=== PATIENT | female | born 1955 | race Two or more races ===

== ENCOUNTER → 2024-08-08 | Outpatient (BNVA) | payer MEDICAID, SELFPAY | END | disposition home or self-care (01) | PROVIDERS: PCP Nurse Practitioner Family; Referring Provider Nurse Practitioner Family; Visit Provider Nurse Practitioner Primary Care | DX: E78.5 Hyperlipidemia, unspecified (principal); I10 Essential (primary) hypertension; E66.09 Other obesity due to excess calories; Z68.35 Body mass index [BMI] 35.0-35.9, adult; S22.43XA Multiple fractures of ribs, bilateral, initial encounter for closed fracture; S22.009A Unspecified fracture of unspecified thoracic vertebra, initial encounter for closed fracture; N39.0 Urinary tract infection, site not specified | CPT/HCPCS: 87811; 99213 ==

== ENCOUNTER → 2024-08-14 | Outpatient (BNVA) | payer OTHER, MEDICAID, SELFPAY | END | disposition home or self-care (01) | PROVIDERS: PCP Nurse Practitioner Primary Care; Referring Provider Nurse Practitioner Primary Care; Visit Provider Nurse Practitioner Primary Care | DX: N30.00 Acute cystitis without hematuria (principal) | CPT/HCPCS: 96372; 99215; A4216; J0696 ==

== ENCOUNTER → 2024-09-27 | Outpatient (BNVA) | payer OTHER, SELFPAY | END | disposition home or self-care (01) | PROVIDERS: PCP Nurse Practitioner Family; Referring Provider Nurse Practitioner Family; Visit Provider Nurse Practitioner Family | DX: Z71.2 Person consulting for explanation of examination or test findings (principal); M81.0 Age-related osteoporosis without current pathological fracture; K21.9 Gastro-esophageal reflux disease without esophagitis; K22.10 Ulcer of esophagus without bleeding; K29.70 Gastritis, unspecified, without bleeding; K29.80 Duodenitis without bleeding | CPT/HCPCS: 99214 ==

== ENCOUNTER → 2024-09-30 | Outpatient (CLI) | payer OTHER, SELFPAY ==
--- NOTE | 2024-09-30 11:45 | XR_ITS ---
Examination: Screening digital mammography, bilateral Computer aided detection 3-D breast Tomosynthesis, bilateral Date and time of exam: September 30, 2024 11:51 AM Compared to mammograms dating to April 29, 2016 Indication: Screening Technique: Nonmagnified MLO, CC views of the breasts to been obtained, reconstructed from 3-D Tomosynthesis images. R2 computer aided detection program utilized for evaluation of suspicious masses and/or abnormal calcifications. 3-D Tomosynthesis images obtained. Findings: The breasts are heterogeneously dense, which may obscure small masses Benign calcifications. No interval suspicious masses Impression: BI-RADS category II: Benign Findings. Recommend 1 year follow-up mammogram.
== END | disposition home or self-care (01) ==
LOC: CDIM 11:37
PROVIDERS: Referring Provider Nurse Practitioner Family; Visit Provider Nurse Practitioner Family
DX: Z12.31 Encounter for screening mammogram for malignant neoplasm of breast (principal); R92.323 Mammographic fibroglandular density, bilateral breasts; R92.1 Mammographic calcification found on diagnostic imaging of breast
CPT/HCPCS: 77063; 77067

== ENCOUNTER → 2024-11-01 | Outpatient (BNVA) | payer OTHER, MEDICAID, SELFPAY | END | disposition home or self-care (01) | PROVIDERS: PCP Nurse Practitioner Family; Referring Provider Nurse Practitioner Family; Visit Provider Nurse Practitioner Family | DX: M54.50 Low back pain, unspecified (principal); Z71.2 Person consulting for explanation of examination or test findings | CPT/HCPCS: 99214 ==

== ENCOUNTER → 2024-11-01 | Outpatient (CLI) | payer OTHER, MEDICAID, SELFPAY ==
--- NOTE | 2024-11-01 11:37 | XR_ITS ---
Examination: Lumbar spine, 5 views Technique: Lumbar spine AP, lateral, coned lateral lower lumbar spine, bilateral obliques 5 views Exam date and time: November 01, 2024 1140 hours INDICATIONS: Low back pain beginning 2 months ago. FINDINGS: Severe osteopenia Lumbar dextroscoliosis 10 degrees Mild to moderate bilateral hip osteoarthritis Diffuse advanced facet arthropathy Severe chronic compression fracture L1 No acute lumbar fracture Diffuse lumbar disc narrowing, moderate to advanced L5-S1 IMPRESSION: Severe osteopenia Diffuse lumbar degenerative disc disease, moderate to advanced L5-S1 with significant spinal stenosis
== END | disposition home or self-care (01) ==
PROVIDERS: PCP Nurse Practitioner Family; Referring Provider Nurse Practitioner Family; Visit Provider Nurse Practitioner Family
DX: M85.88 Other specified disorders of bone density and structure, other site (principal); M51.369 Other intervertebral disc degeneration, lumbar region without mention of lumbar back pain or lower extremity pain; M48.061 Spinal stenosis, lumbar region without neurogenic claudication
CPT/HCPCS: 72110

== ENCOUNTER → 2024-11-19 | Outpatient (BNVA) | payer OTHER, MEDICAID, SELFPAY | END | disposition home or self-care (01) | PROVIDERS: PCP Nurse Practitioner Family; Referring Provider Nurse Practitioner Family; Visit Provider Nurse Practitioner Family | DX: M54.50 Low back pain, unspecified (principal); E78.5 Hyperlipidemia, unspecified; R73.03 Prediabetes; Z71.2 Person consulting for explanation of examination or test findings; M85.88 Other specified disorders of bone density and structure, other site; M48.061 Spinal stenosis, lumbar region without neurogenic claudication; M51.369 Other intervertebral disc degeneration, lumbar region without mention of lumbar back pain or lower extremity pain; E03.8 Other specified hypothyroidism; J30.9 Allergic rhinitis, unspecified | CPT/HCPCS: 87804; 87811; 99214 ==

== ENCOUNTER → 2025-02-06 | Outpatient (BNVA) | payer OTHER, MEDICAID, SELFPAY | END | disposition home or self-care (01) | PROVIDERS: PCP Nurse Practitioner Family; Referring Provider Nurse Practitioner Family; Visit Provider Nurse Practitioner Family | DX: M81.0 Age-related osteoporosis without current pathological fracture (principal); K14.6 Glossodynia; R19.6 Halitosis; M85.80 Other specified disorders of bone density and structure, unspecified site | CPT/HCPCS: 99213 ==

== ENCOUNTER → 2025-02-18 | Outpatient (BNVA) | payer OTHER, MEDICAID, SELFPAY | END | disposition home or self-care (01) | PROVIDERS: PCP Nurse Practitioner Family; Referring Provider Nurse Practitioner Family; Visit Provider Nurse Practitioner Family | DX: F41.9 Anxiety disorder, unspecified (principal); R73.03 Prediabetes; E55.9 Vitamin D deficiency, unspecified; E78.5 Hyperlipidemia, unspecified; I10 Essential (primary) hypertension; E66.09 Other obesity due to excess calories; Z68.35 Body mass index [BMI] 35.0-35.9, adult; E03.8 Other specified hypothyroidism; Z01.83 Encounter for blood typing; F32.0 Major depressive disorder, single episode, mild | CPT/HCPCS: 99214 ==

== ENCOUNTER → 2025-02-20 | Outpatient (BNVA) | payer OTHER, MEDICAID, SELFPAY | END | disposition home or self-care (01) | PROVIDERS: PCP Nurse Practitioner Family; Referring Provider Nurse Practitioner Family; Visit Provider Nurse Practitioner Family | DX: Z71.2 Person consulting for explanation of examination or test findings (principal); R73.03 Prediabetes; E78.5 Hyperlipidemia, unspecified | CPT/HCPCS: 99213 ==

== ENCOUNTER 2025-02-22 08:39 | Emergency (ER) | payer OTHER, MEDICAID, SELFPAY ==
[2025-02-22 08:48] VITALS: BP 188/105; BP 192/97; PULSE 76; RESP 18; TEMP 37.1; O2SAT 97; BMI 32.4
--- NOTE | 2025-02-22 08:59 | XR_ITS ---
Examination: PA lateral chest 2 views Technique: Upright chest 2 views Exam date and time: February 23, 2020 hours Indications: Headaches 5 at 1014 2 days ago. Findings: Mild prominence of ventricle Subsegmental atelectasis right base Infiltrate in the chest with kyphosis dorsal spine secondary to chronic osteoporotic compressions mid dorsal vertebral bodies. No pneumonia or pulmonary edema Impression: No pneumonia or pulmonary edema
--- NOTE | 2025-02-22 08:59 | EKG_ITS ---
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
--- NOTE | 2025-02-22 09:00 | PD.EDRME ---
Rapid Medical Screening Exam RME Arrival date/time: 02/22/25 08:39 69-year-old female presents the emergency department today with son who reports has been suffering with high blood pressure as well as headaches and nausea Chief Complaint: Headache Time Seen by Provider: 02/22/25 08:50 Vital signs: Vital Signs Temperature 98.8 F 02/22/25 08:48 Pulse Rate 76 02/22/25 08:48 Respiratory Rate 18 02/22/25 08:48 Blood Pressure 188/105 H 02/22/25 08:48 Pulse Oximetry (%) 97 02/22/25 08:48 Oxygen Delivery Method Room Air 02/22/25 08:48
[2025-02-22] MEDS: HYDROcodone/APAP 5/325 TABLET 1 TAB PO (10:17)
[2025-02-22] MEDS: ONDANSETRON ODT 4 MG TABRAP PO (10:18)
[2025-02-22 11:23] VITALS: BP 178/80; PULSE 94; RESP 18; TEMP 36.6; O2SAT 99
[2025-02-22] MEDS: METOCLOPRAMIDE INJ 5 MG/ML VIAL 2 ML 10 MG IM (12:59)
[2025-02-22] MEDS: KETOROLAC INJ 30 MG/ML VIAL IM (12:59)
[2025-02-22 13:03] VITALS: PULSE 68; RESP 16; TEMP 36.8; O2SAT 98
--- NOTE | 2025-02-22 13:06 | EDNOTE_ITS ---
ED Headache RME/HPI General Chief Complaint: Headache Stated Complaint: DUNN x 2 DAYS, HIGH B/P YESTERDAY AT MD OFFICE Time Seen by Provider: 02/22/25 08:50 Arrival date/time: 02/22/25 08:39 RME / HPI RME / HPI Narrative: 02/22/25 08:39 69-year-old female presents the emergency department today with son who reports has been suffering with high blood pressure as well as headaches and nausea DR. CORBIN MAIN ED EVALUATION: 69 year old female with history of hypertension presents to the ED for complaint of headache beginning this morning. Described as aching in sensation, located diffusely, initially rating 10/10. States she took her medications for hypertension this morning otherwise did not take any medications for pain. No other associated symptoms or complaints reported. Denies fevers, chills, sweats, vision changes, weakness, loss of sensation/movement. Related Data Previous Rx's ?Medication ?Instructions ?Recorded diclofenac sodium 1 % topical gel 2 g topical QID #100 grams 11/01/24 (Voltaren Arthritis Pain) denosumab 60 mg/mL subcutaneous 60 mg subcut .once tiffanie ry 6 months 02/06/25 syringe (Prolia) #1 mL aspirin 81 mg tablet,delayed 81 mg PO QDAY #90 tabs release losartan 100 1 tab PO QDAY 90 days #90 ta bs 02/18/25 mg-hydrochlorothiazide 25 mg tablet rosuvastatin 40 mg tablet 40 mg PO QDAY #90 tabs 02/18 ezetimibe 10 mg tablet 10 mg PO QDAY 90 days #90 ta bs 02/20/25 Allergies Allergy/AdvReac Type Severity Reaction Status Date / Time adhesive tape Allergy Mild Rash Verified 02/22/25 08:42 Review of Systems Review of Systems Narrative Review of Systems: Gen: No fever, no chills, no weight loss EYES: No discharge, no visual changes, no pain HEENT: No ear pain, no congestion, no sore throat PULM: no shortness of breath, no cough, no congestion CV: No chest pain, no dyspnea on exertion, no palpitations, no chest tightness GI: No nausea, no vomiting, no diarrhea, no pain, no constipation : No frequency, no urgency,? no dysuria Musc/skel: No joint pain, no back pain Skin: No rash, no ecchymosis, no lesions Neuro: No weakness, +headache Past Medical History Past Medical History CARDIAC: Positive Cardiac Disorders, Hypercholesterolemia and Hypertension GASTROINTESTINAL: Positive Gastrointestinal Disorders, Gall Bladder Disease and Gastroesophageal Reflux Disease REPRODUCTIVE: Positive Previous Pregnancies HEMATOLOGIC: Positive Blood Disorders and Anemia OTHER HISTORY: Positive Blood Transfusions Family History FAMILY HISTORY: Negative Family Cardiac Disorders Surgical History SURGICAL: Positive Eye Surgery (BILATERAL), Lumpectomy (BREAST) and Section (X1) Social History SMOKING STATUS: Never smoker SECOND HAND EXPOSURE: No ED Exam Narrative Physical exam: GENERAL APPEARANCE: AxOx4, no obvious distress, nontoxic appearing HEENT: NC, AT. MMM. EOMI, clear conjunctiva, oropharynx clear. NECK: Supple without lymphadenopathy. No stiffness or restricted ROM. HEART: Normal rate and regular rhythm, normal S1/S1, no m/r/g LUNGS: CTAB, moving air well. No crackles or wheezes are heard. BACK: No midline C/T/L spine pain or deformity, No CVAT, no obvious deformity. EXTREMITIES: Without cyanosis, clubbing or edema. MUSCULOSKELETAL: FROM of all major joints, no chest tenderness NEUROLOGICAL: Grossly nonfocal. Alert and oriented, moving all 4 extremities. CN not formally tested but appear grossly intact. Observed to ambulate with normal gait. Skin: Warm and dry without any rash. Course Quality Measures none Orders Category Date Time Status EKG (ED ONLY) *Do not use* NOW Care 02/22/25 08:59 Completed EKG (ED Only) Stat Exams 02/22/25 08:59 Draft XR chest 2V Stat Exams 02/22/25 08:59 Completed HYDROcodone*/APAP 5/325 [Garrison 5/325] Med 02/22/25 08:59 Discontinued 1 tab PO X1 ONE Ketorolac Inj [Toradol Inj] Med 02/22/25 12:38 Discontinued 30 mg IM X1 ONE Metoclopramide Inj [Reglan Inj] Med 02/22/25 12:38 Discontinued 10 mg IM X1 ONE Ondansetron Odt [Zofran Odt] Med 02/22/25 08:59 Discontinued 4 mg PO X1 ONE Reevaluation(s) Reevaluation #1: Patient reports her headache has improved, from 10/10 to 5/10. Will order migraine cocktail and DC home. We reviewed all the results, analysis, and treatment plans. Patient is amenable to discharge. Strict return precautions were outlined. Patient was discharged in stable condition. Time: 12:35 Vital Signs Vital signs: Vital Signs Temperature 98.8 F 02/22/25 08:48 Pulse Rate 76 02/22/25 08:48 Respiratory Rate 18 02/22/25 08:48 Blood Pressure 188/105 H 02/22/25 08:48 Pulse Oximetry (%) 97 02/22/25 08:48 Oxygen Delivery Method Room Air 02/22/25 08:48 Pulse ox is 97% on room air which is adequate. Headache MDM Narrative MDM Narrative:: Merline Sheikh am scribing for and in the presence of Dr. Corbin. Patient data [facility] records reviewed:: [facility] records (I reviewed ED visit on 09/06/2021 ) Clinical information provided by:: patient Social determinants that could affect healthcare access:: none Patient has the following chronic illnesses:: Hypertension How is presenting disease/condition affected by chronic disease/condition?: exacerbated by Evaluation data The following diagnostics were reviewed and interpreted by me:: lab results, radiology exam(s) and EKG tracing(s) (EKG at 09:05 AM shows sinus rhythm, rate 70, no acute ischemia, no STEMI. ) Lab and/or radiology exams considered but not ordered:: None Interpretation Summary: Ordering Physician: Meaghan (CLIF)Paolo NP Date of Service: 02/22/25 Procedure(s): XR chest 2V Accession Number(s): [id number] cc: Meaghan (CLIF)Paolo NP; Andrew Conrad MD; Zoraida Weaver ([facility])~ Examination: PA lateral chest 2 views Technique: Upright chest 2 views Exam date and time: February 23, 2020 hours Indications: Headaches 5 at 1014 2 days ago. Findings: Mild prominence of ventricle Subsegmental atelectasis right base Infiltrate in the chest with kyphosis dorsal spine secondary to chronic osteoporotic compressions mid dorsal vertebral bodies. No pneumonia or pulmonary edema Impression: No pneumonia or pulmonary edema Dictated By: Andrew Conrad MD Signed By: <Electronically signed by Andrew Conrad MD in OV> 02/22/25 0955 Medications / Prescriptions Medications or Prescriptions considered but not ordered:: None Medication administrations:: Medication Administration History Discontinued Medications Hydrocodone Bitart/Acetaminophen (Hydrocodone/Apap 5/325 Tablet) 1 tab PO X1 ONE Stop: 02/22/25 09:00 Last Admin: 02/22/25 10:17 Dose: 1 tab Documented By: JEFF Ketorolac Tromethamine (Ketorolac Inj 30 Mg/Ml Vial) 30 mg IM X1 ONE Stop: 02/22/25 12:39 Last Admin: 02/22/25 12:59 Dose: 30 mg Documented By: SILVA Metoclopramide HCl (Metoclopramide Inj 5 Mg/Ml Vial 2 Ml) 10 mg IM X1 ONE; P rotocol Stop: 02/22/25 12:39 Last Admin: 02/22/25 12:59 Dose: 10 mg Documented By: SILVA Ondansetron HCl (Ondansetron Odt 4 Mg Tabrap) 4 mg PO X1 ONE; Protocol Stop: 02/22/25 09:00 Last Admin: 02/22/25 10:18 Dose: 4 mg Documented By: JEFF See above Consultations Consultation(s) initiated? (list below): No Diagnosis Differential diagnosis headache: migraine, tension headache, headache and sinusitis Most likely diagnosis given after review of the tests above:: Headache Admission Indicated Admission indicated?: not indicated Admission Request Was there a request for admission?: No Disposition Plan Disposition Plan: Discharge Discharge Attestation Discharge Attestation: The patient and all family members were given an opportunity to ask questions and understood the discharge instructions. Discharge instructions specifically effects, indications for sooner follow up or return to the emergency department, and the expected course of current diagnosis. Patient condition: Stable Discharge Plan Plan Patient Disposition: HOME (Self Care) Prescriptions/Referrals Prescriptions/Med Rec: No Action Prolia 60 mg/mL syringe 60 mg subcut .once every 6 months Qty: 1 0RF aspirin 81 mg tablet,delayed release (DR/EC) 81 mg PO QDAY Qty: 90 1RF rosuvastatin 40 mg tablet 40 mg PO QDAY Qty: 90 1RF losartan-hydrochlorothiazide 100-25 mg tablet 1 tab PO QDAY 90 Days Qty: 90 2RF ezetimibe 10 mg tablet 10 mg PO QDAY 90 Days Qty: 90 0RF diclofenac sodium [Voltaren Arthritis Pain] 1 % gel 2 g topical QID Qty: 100 0RF Rx Instructions: apply to area of concern Referrals: Owen [facility] AFFAIRS MANAGER,Zoraida Enrique, [employer] AFFAIRS MANAGER [Primary Care Provider] - In 1 week Problem List Clinical Impression: Headache Patient/Caregiver Discharge Instructions Education Materials: Self-Care for Headaches Additional Instructions: Acuda a mccabe m?dico de cabecera en 2 o 3 d?as para rolf nueva evaluaci?n. Puede regresar a urgencias antes si los s?ntomas empeoran o si surge alg?n problema nuevo o preocupante. Print Language: Occitan Stand Alone Forms: Ivanna Award Info., Patient Portal Info Letter
== END 2025-02-22 13:04 | disposition home or self-care (01) ==
PROVIDERS: Emergency Provider Emergency Medicine; PCP Nurse Practitioner Family
DX: R51.9 Headache, unspecified (principal); R94.31 Abnormal electrocardiogram [ECG] [EKG]
CPT/HCPCS: 71046; 80053; 84484; 85025; 93005; 96372; 99284; J1885; J2765; Q0162; A9270

== ENCOUNTER → 2025-02-26 | Outpatient (BNVA) | payer OTHER, MEDICAID, SELFPAY | END | disposition home or self-care (01) | PROVIDERS: PCP Nurse Practitioner Family; Referring Provider Nurse Practitioner Family; Visit Provider Nurse Practitioner Family | DX: R51.9 Headache, unspecified (principal); Z23 Encounter for immunization; I10 Essential (primary) hypertension | CPT/HCPCS: 90471; 90677; 99215; G0009; J90677 ==

== ENCOUNTER → 2025-03-13 | Outpatient (BNVA) | payer OTHER, MEDICAID, SELFPAY | END | disposition home or self-care (01) | PROVIDERS: PCP Nurse Practitioner Family; Referring Provider Nurse Practitioner Family; Visit Provider Nurse Practitioner Family | DX: M81.0 Age-related osteoporosis without current pathological fracture (principal) | CPT/HCPCS: 96372; 99213; J0897 ==

== ENCOUNTER → 2025-03-24 | Outpatient (BNVA) | payer OTHER, MEDICAID, SELFPAY | END | disposition home or self-care (01) | PROVIDERS: PCP Nurse Practitioner Family; Referring Provider Nurse Practitioner Family; Visit Provider Nurse Practitioner Family | DX: R01.1 Cardiac murmur, unspecified (principal); R53.83 Other fatigue; E78.5 Hyperlipidemia, unspecified; R73.03 Prediabetes; E03.8 Other specified hypothyroidism; I10 Essential (primary) hypertension; R06.00 Dyspnea, unspecified | CPT/HCPCS: 85018; 99214 ==

== ENCOUNTER → 2025-04-01 | Outpatient (BNVA) | payer OTHER, MEDICAID, SELFPAY | END | disposition home or self-care (01) | PROVIDERS: PCP Nurse Practitioner Family; Referring Provider Nurse Practitioner Family; Visit Provider Nurse Practitioner Family | DX: I10 Essential (primary) hypertension (principal); E11.9 Type 2 diabetes mellitus without complications; E78.5 Hyperlipidemia, unspecified; Z71.2 Person consulting for explanation of examination or test findings | CPT/HCPCS: 83036; 99213 ==

== ENCOUNTER 2025-04-21 22:39 | Emergency (ER) | payer OTHER, MEDICAID, SELFPAY ==
[2025-04-21 22:39] VITALS: BP 163/82; PULSE 93; RESP 18; TEMP 36.7; O2SAT 97
--- NOTE | 2025-04-21 23:13 | PD.EDRME ---
Rapid Medical Screening Exam RME Arrival date/time: 04/21/25 22:39 Chief Complaint: Nausea/Vomiting/Diarrhea Vital signs: Vital Signs Temperature 98.1 F 04/21/25 22:39 Pulse Rate 93 04/21/25 22:39 Respiratory Rate 18 04/21/25 22:39 Blood Pressure 163/82 H 04/21/25 22:39 Pulse Oximetry (%) 97 04/21/25 22:39 Oxygen Delivery Method Room Air 04/21/25 22:39 Pulse ox room air is 97%. Vital signs reviewed by provider: Yes RME Narrative: 69-year-old female presents to the ED with a complaint of nausea with vomiting up to 3 times per day x 1 day with diarrhea up to 3 times a day x 1 day. Also complains of feeling very cold. Complains of pain at the epigastrium as well as the back of the head.
[2025-04-21] MEDS: ONDANSETRON ODT 4 MG TABRAP PO (23:44)
[2025-04-21 23:47] LABS: Basophils % (Auto) 0 % (0-2.5); Eosinophils # (Auto) 0.1 Thou/mm3 (0.0-0.5); Eosinophils % (Auto) 1 % (0-10); Hematocrit 38.6 % (36.0-46.0); Hemoglobin 13.2 g/dL (12.0-16.0); Immature Granulocytes % (Auto) 0 % (0-0); Immature Granulocytes Auto 0.04 Thou/mm3 (0.00-0.00); Lymphocytes % (Auto) 10 % (10-50); Mean Corpuscular HGB Conc 34.2 g/dl (31.0-37.0); Mean Corpuscular Hemoglobin 30.1 pg (25.0-35.0); Mean Corpuscular Volume 88 fL (80-100); Monocytes # (Auto) 0.5 Thou/mm3 (0.0-0.8); Monocytes % (Auto) 5 % (0-12); Neutrophils # (Auto) 8.7 Thou/mm3 (1.8-7.7); Neutrophils % (Auto) 84 % (37-80); Nucleated Red Blood Cell % 0 /100 WBC (0); Platelet Count 313 Thou/mm3 (140-440); RDW Standard Deviation 47.7 fL (36.4-46.3); Red Blood Count 4.38 Miln/mm3 (4.00-5.20); White Blood Count 10.3 Thou/mm3 (3.6-11.0)
[2025-04-21 23:56] LABS: Alanine Aminotransferase 25 U/L (10-49); Albumin, Serum 4.3 gm/dL (3.4-4.8); Albumin/Globulin Ratio 1.9 (1.2-2.2); Alkaline Phosphatase 94 U/L (46-116); Anion Gap 12 (7-16); Aspartate Amino Transferase 19 U/L (0-34); BUN/Creatinine Ratio 13 Ratio (12-20); Bilirubin,Total 1.2 mg/dL (0.3-1.2); Blood Urea Nitrogen 9 mg/dL (9-23); Calcium 8.2 mg/dL (8.3-10.6); Calcium (Corrected) 8.2 mg/dL (8.5-10.1); Chloride 101 mMol/L (98-107); Creatinine (Component) 0.7 mg/dL (0.6-1.3); Globulin 2.3 gm/dL (2.3-3.5); Glucose 128 mg/dL (74-106); Lipase 31 U/L (12-53); Osmolality,Calculated 280 (275-295); Potassium 3.1 mMol/L (3.4-5.1); Sodium 140 mMol/L (136-145); Total Protein 6.6 gm/dL (5.7-8.2); eGFR > 60 See Note
--- NOTE | 2025-04-22 01:53 | PD.EDNV ---
Nausea/Vomit./Diarrhea-RME/HPI General Chief complaint: Nausea/Vomiting/Diarrhea Stated complaint: VOMITING, DIARRHEA X THIS AM Arrival date/time: 04/21/25 22:39 RME / HPI RME / HPI Narrative: 69-year-old female presents to the ED with a complaint of nausea with vomiting up to 3 times per day x 1 day with diarrhea up to 3 times a day x 1 day. Also complains of feeling very cold. Complains of pain at the epigastrium as well as the back of the head. -------- Dr. Lezama?s Main ED Evaluation: 69yo female with a history of HTN, HLD presents to the ED for complaints of N/V/D x 1 day. Patient endorses having 3 emetic and diarrhea episodes over the last 24 hours. Patient was given Zofran here, but states it didn't improve her symptoms. Patient denies any headache, dizziness, chest pain, shortness of breath, abdominal pain, cough or any other associated symptoms. Denies any sick contacts or recent travel. Related Data Previous Rx's ?Medication ?Instructions ?Recorded diclofenac sodium 1 % topical gel 2 g topical QID #100 grams 11/01/24 (Voltaren Arthritis Pain) denosumab 60 mg/mL subcutaneous 60 mg subcut .once every 6 months 02/06/25 syringe (Prolia) #1 mL aspirin 81 mg tablet,delayed 81 mg PO QDAY #90 tabs 02/18/25 release calcium 1,000 mg (as 1 tab PO .q day 90 days #90 tabs 03/14/25 carbonate)-vitamin D3 20 mcg (800 unit) tablet amlodipine 5 mg tablet 5 mg PO QDAY #90 tabs 04/01/25 ezetimibe 10 mg tablet 10 mg PO QDAY 90 days #90 tabs 04/01/25 losartan 100 1 tab PO QDAY 90 days #90 tabs 04/01/25 mg-hydrochlorothiazide 25 mg tablet rosuvastatin 40 mg tablet 40 mg PO QDAY #90 tabs 04/01/25 ondansetron 4 mg disintegrating 4 mg PO Q12H PRN nausea and 04/22/25 tablet vomiting 2 days #4 tabs Allergies Allergy/AdvReac Type Severity Reaction Status Date / Time adhesive tape Allergy Mild Rash Verified 04/21/25 22:41 Review of Systems Review of Systems Systems Reviewed: All systems reviewed, normal except as documented Past Medical History Past Medical History NEUROLOGIC: Negative Neurological Disorders or Seizures CARDIAC: Positive Cardiac Disorders, Hypercholesterolemia and Hypertension; Negative Congestive Heart Failure RESPIRATORY: Negative Chronic Obstructive Pulmonary Disease (COPD) GASTROINTESTINAL: Positive Gastrointestinal Disorders, Gall Bladder Disease and Gastroesophageal Reflux Disease GENITOURINARY: Negative Genitourinary Disorders or Renal Disease REPRODUCTIVE: Positive Previous Pregnancies; Negative Pelvic Inflammatory Disease MENOPAUSE AGE: 43 MUSCULOSKELETAL: Negative Musculoskeletal Disorders ENDOCRINE: Negative Endocrine Disorders, Diabetes Mellitus Type 1 or Diabetes Mellitus Type 2 HEMATOLOGIC: Positive Blood Disorders and Anemia OTHER HISTORY: Positive Blood Transfusions; Negative Autoimmune Disease, Blood Transfusion Reaction, Anesthesia Reactions, Organ Transplant, Chemotherapy, Radiation Therapy, Hyperbaric Therapy, MRSA, VRSA, Vancomycin-Resistant Enterococci, Clostridium Difficile or Cancer Family History FAMILY HISTORY: Negative Family Cardiac Disorders Surgical History SURGICAL: Positive Eye Surgery (BILATERAL), Lumpectomy (BREAST) and Section (X1); Negative Organ Transplant Social History SMOKING STATUS: Never smoker SECOND HAND EXPOSURE: No ED Exam Narrative Physical exam: GEN. APPEARANCE: The patient is alert awake oriented X-3 in no distress, appears weak. Patient has good eye contact. Patient is cooperative. VITALS: All vitals were reviewed and the pulse ox is 97% on room air which is normal according to my interpretation. HEENT: Normocephalic, atraumatic. Pupils are equal and reactive. Oral mucosa is moist. Patent Nares NECK: Supple, nontender, no thyromegaly, no meningismus, no JVD CHEST: Symmetrical, atraumatic, and with equal expansion , Nontender on palpation no deformity and no crepitus. CARDIOVASCULAR: Heart regular rhythm no murmur or gallop rub or extra beats. LUNGS: Clear to auscultation bilaterally with symmetrical chest rise. No laboring tachypnea or wheezing. No intercostal subcostal retraction. No rales and no rhonchi. ABDOMEN: Soft, flat, nontender to palpation, no guarding or rebound tenderness. There are no abnormal masses palpated. Active and normal bowel sounds. EXTREMITIES: Nontender. No edema. No cyanosis. Patient is able to move all 4 extremities well, with full ROM and good CSM. SKIN: Warm and dry, no jaundice or rashes noted. NEURO: Patient is EVANS x 4, Cranial nerves II through XII grossly intact. There is no focal neurologic deficits noted. GCS is 15, PNS and BOAT HAND appear grossly intact. PSYCHIATRIC: Patient is in normal mood and affect. Course Quality Measures none Orders Category Date Time Status CBC Stat Lab 04/21/25 23:18 Completed Comprehensive Metabolic Panel Stat Lab 04/21/25 23:18 Completed Lipase Stat Lab 04/21/25 23:18 Completed Urinalysis Stat Lab 04/21/25 23:15 Ordered Acetaminophen Tab [Tylenol Tab] Med 04/22/25 02:25 Discontinued 650 mg PO X1 ONE Ondansetron Odt [Zofran Odt] Med 04/21/25 23:15 Discontinued 4 mg PO X1 ONE Potassium Chloride [K-Dur] Med 04/22/25 01:47 Discontinued 40 meq PO X1 ONE Ringers Lactated 1000 ml [Lactated Ringers] 1,000 ml Med 04/22/25 01:53 Active IV 999 mls/hr Vital Signs Vital signs: Vital Signs Temperature 98.1 F 04/21/25 22:39 Pulse Rate 93 04/21/25 22:39 Respiratory Rate 18 04/21/25 22:39 Blood Pressure 163/82 H 04/21/25 22:39 Pulse Oximetry (%) 97 04/21/25 22:39 Oxygen Delivery Method Room Air 04/21/25 22:39 Nausea/Vomiting/Diarrhea MDM Narrative MDM Narrative:: Scribe Attestation: 04/22/25 - Skyla Sheikh am scribing for and in the presence of Dr. Lezama. 0220: Patient is febrile at 103.2. Tylenol 650mg PO ordered. Patient data External records reviewed:: [facility] previous records (Per chart review, patient was seen here on 02/22/25 for a headache.) Clinical information provided by:: patient Social determinants that could affect healthcare access:: none Patient has the following chronic illnesses:: HTN, HLD How is presenting disease/condition affected by chronic disease/condition?: uneffected by Evaluation data The following diagnostics were reviewed and interpreted by me:: lab results Lab and/or radiology exams considered but not ordered:: none Interpretation Summary: CBC normal, Potassium 3.1 repleted in the emergency department, Lipase normal, UA is unremarkable for UTI. Symptoms most consistent with viral etiology. Patient abdomen soft nondistended nontender, less likely acute intra-abdominal pathology. On reevaluation, patient clinically improved, tolerating oral intake. Will discharge home close return precautions follow-up with primary care doctor Medications / Prescriptions Medications / Prescriptions considered but not ordered:: none Medication administrations:: Medication Administration History Lactated Ringer's (Lactated Ringers) 1,000 mls @ 999 mls/hr IV .Q1H1M ONE Stop: 04/22/25 02:53 Last Admin: 04/22/25 02:12 Dose: 999 mls/hr Documented By: KEHINDE Discontinued Medications Acetaminophen (Acetaminophen 325 Mg Tablet) 650 mg PO X1 ONE Stop: 04/22/25 02:26 Ondansetron HCl (Ondansetron Odt 4 Mg Tabrap) 4 mg PO X1 ONE; Protocol Stop: 04/21/25 23:16 Last Admin: 04/21/25 23:44 Dose: 4 mg Documented By: KEHINDE Potassium Chloride (Potassium Chloride 20 Meq Tabcr) 40 meq PO X1 ONE Stop: 04/22/25 01:48 Last Admin: 04/22/25 02:20 Dose: 40 meq Documented By: THERESA see above Consultations Consultation(s) initiated? (list below): No Diagnosis Nausea Differential Diagnosis: dehydration and other (constipation, obstruction, UTI, bacteremia) Most likely diagnosis given after review of the tests above:: see clinical impression below Admission Indicated Admission indicated?: not indicated Admission Request Was there a request for admission?: No Disposition Plan Disposition Plan: Discharge Discharge Attestation Discharge Attestation: The patient and all family members were given an opportunity to ask questions and understood the discharge instructions. Discharge instructions specifically effects, indications for sooner follow up or return to the emergency department, and the expected course of current diagnosis. Patient condition: Stable Discharge Plan Plan Patient Disposition: HOME (Self Care) Prescriptions/Referrals Prescriptions/Med Rec: New ondansetron 4 mg tablet,disintegrating 4 mg PO Q12H PRN (Reason: nausea and vomiting) 2 Days Qty: 4 0RF No Action Prolia 60 mg/mL syringe 60 mg subcut .once every 6 months Qty: 1 0RF aspirin 81 mg tablet,delayed release (DR/EC) 81 mg PO QDAY Qty: 90 1RF calcium carbonate-vitamin D3 1,000 mg-20 mcg (800 unit) tablet 1 tab PO .q day 90 Days Qty: 90 1RF diclofenac sodium [Voltaren Arthritis Pain] 1 % gel 2 g topical QID Qty: 100 0RF Rx Instructions: apply to area of concern amlodipine 5 mg tablet 5 mg PO QDAY Qty: 90 0RF ezetimibe 10 mg tablet 10 mg PO QDAY 90 Days Qty: 90 0RF losartan-hydrochlorothiazide 100-25 mg tablet 1 tab PO QDAY 90 Days Qty: 90 0RF rosuvastatin 40 mg tablet 40 mg PO QDAY Qty: 90 0RF Referrals: No Primary/Family,Physician [Primary Care Provider] - In 1 week Problem List Clinical Impression: Diarrhea, Vomiting Patient/Caregiver Discharge Instructions Discharge Activity: activity as tolerated Education Materials: Treating Diarrhea, ED Diet for Vomiting or ... Print Language: New Zealander Stand Alone Forms: Ivanna Award Info., Patient Portal Info Letter
[2025-04-22] MEDS: RINGERS LACTATED 1000 ML 1,000 ML 999 ML IV (02:12)
[2025-04-22 02:16] LABS: Collection Type, Urine Clean Catch
[2025-04-22] MEDS: POTASSIUM CHLORIDE 20 mEq TABCR 40 MEQ PO (02:20)
[2025-04-22 02:21] VITALS: BP 138/65; PULSE 92; RESP 16; TEMP 39.6; O2SAT 95; BMI 35.2
[2025-04-22 02:33] LABS: Bilirubin,Urine Negative (Negative); Blood,Urine Negative (Negative); Clarity,Urine Clear (Clear/Hazy); Color,Urine Yellow (Lt Yel-Yel); Glucose, Urine Negative (Negative); Ketones,Urine 1+ (Negative); Leukocyte Esterase,Urine Negative (Negative); Nitrite,Urine Negative (Negative); PH,Urine 6.5 (5.0-7.0); Protein,Urine Negative (Neg - Trace); RBC,Urine 1 /hpf (0-3); Specific Gravity,Urine 1.021 (1.001-1.035); Squamous Epithelial Cell,Urine 1 /hpf (0-5); Urobilinogen,Urine Negative mg/dL (0.0-1.0); WBC,Urine 2 /hpf (0-5)
[2025-04-22 02:41] VITALS: TEMP 39.6
[2025-04-22] MEDS: ACETAMINOPHEN 325 MG TABLET 650 MG PO (02:41)
[2025-04-22 03:16] VITALS: TEMP 37.8
[2025-04-22 03:17] VITALS: BP 136/72; PULSE 90; RESP 16; TEMP 37.8; O2SAT 99
== END 2025-04-22 03:17 | disposition home or self-care (01) ==
PROVIDERS: Physician Assistant; Emergency Provider Emergency Medicine
DX: R19.7 Diarrhea, unspecified (principal); R11.2 Nausea with vomiting, unspecified; E78.5 Hyperlipidemia, unspecified; I10 Essential (primary) hypertension
CPT/HCPCS: 36415; 80053; 81001; 83690; 85025; 96360; 99284; J7120; Q0162; A9270

== ENCOUNTER → 2025-05-21 | Outpatient (BNVA) | payer OTHER, MEDICAID, SELFPAY | END | disposition home or self-care (01) | PROVIDERS: PCP Nurse Practitioner Family; Referring Provider Nurse Practitioner Family; Visit Provider Nurse Practitioner Primary Care | DX: K29.70 Gastritis, unspecified, without bleeding (principal); K29.80 Duodenitis without bleeding | CPT/HCPCS: 99215 ==

== ENCOUNTER → 2025-06-02 | Outpatient (BNVA) | payer OTHER, MEDICAID, SELFPAY | END | disposition home or self-care (01) | PROVIDERS: PCP Nurse Practitioner Family; Referring Provider Nurse Practitioner Family; Visit Provider Nurse Practitioner Family | DX: R73.03 Prediabetes (principal); R53.83 Other fatigue; E78.5 Hyperlipidemia, unspecified | CPT/HCPCS: 81001; 87804; 87811; 99215 ==

== ENCOUNTER → 2025-07-02 | Outpatient (CLI) | payer MEDICARE, MEDICAID, SELFPAY ==
[2025-07-02 10:20] LABS: Collection Type, Urine Clean Catch
[2025-07-02 10:45] LABS: Basophils # (Auto) 0.0 Thou/mm3 (0.0-0.2); Basophils % (Auto) 1 % (0-2.5); Eosinophils # (Auto) 0.1 Thou/mm3 (0.0-0.5); Eosinophils % (Auto) 2 % (0-10); Hematocrit 38.0 % (36.0-46.0); Hemoglobin 12.6 g/dL (12.0-16.0); Immature Granulocytes Auto 0.01 Thou/mm3 (0.00-0.00); Lymphocytes # (Auto) 1.9 Thou/mm3 (1.0-4.8); Lymphocytes % (Auto) 30 % (10-50); Mean Corpuscular HGB Conc 33.2 g/dl (31.0-37.0); Mean Corpuscular Hemoglobin 30.3 pg (25.0-35.0); Mean Corpuscular Volume 91 fL (80-100); Monocytes # (Auto) 0.5 Thou/mm3 (0.0-0.8); Monocytes % (Auto) 7 % (0-12); Neutrophils # (Auto) 3.8 Thou/mm3 (1.8-7.7); Neutrophils % (Auto) 60 % (37-80); Nucleated Red Blood Cell # 0.00 Thou/mm3 (0.00-0.00); Nucleated Red Blood Cell % 0 /100 WBC (0); Platelet Count 332 Thou/mm3 (140-440); RDW Standard Deviation 45.6 fL (36.4-46.3); Red Blood Count 4.16 Miln/mm3 (4.00-5.20); White Blood Count 6.4 Thou/mm3 (3.6-11.0)
[2025-07-02 10:54] LABS: Glucose Estimated Average 123 mg/dL (80-131); Hemoglobin A1C 5.9 % Hgb (4.8-6.0)
[2025-07-02 10:54] LABS: Bacteria,Urine 1+; Bilirubin,Urine Negative (Negative); Blood,Urine Negative (Negative); Color,Urine Yellow (Lt Yel-Yel); Glucose, Urine Negative (Negative); Hyaline Casts,Urine 1 /hpf (0-1); Ketones,Urine Negative (Negative); Leukocyte Esterase,Urine Positive (Negative); Nitrite,Urine Negative (Negative); PH,Urine 6.5 (5.0-7.0); Protein,Urine 1+ (Neg - Trace); RBC,Urine 3 /hpf (0-3); Specific Gravity,Urine 1.026 (1.001-1.035); Squamous Epithelial Cell,Urine 10 /hpf (0-5); Urobilinogen,Urine Negative mg/dL (0.0-1.0); WBC,Urine 12 /hpf (0-5)
[2025-07-02 11:01] LABS: Vitamin D 25 Hydroxy Total 38.5 ng/mL (7.3-40.2)
[2025-07-02 11:03] LABS: Clarity,Urine Hazy (Clear/Hazy)
[2025-07-02 11:04] LABS: Alanine Aminotransferase 20 U/L (10-49); Albumin, Serum 4.5 gm/dL (3.4-4.8); Albumin/Globulin Ratio 2.0 (1.2-2.2); Alkaline Phosphatase 71 U/L (46-116); Anion Gap 9 (7-16); Aspartate Amino Transferase 20 U/L (0-34); BUN/Creatinine Ratio 15 Ratio (12-20); Bilirubin,Total 0.7 mg/dL (0.3-1.2); Blood Urea Nitrogen 12 mg/dL (9-23); Calcium 10.4 mg/dL (8.3-10.6); Calcium (Corrected) 10.4 mg/dL (8.5-10.1); Carbon Dioxide 29.6 mMol/L (20.0-31.0); Cardiac Risk Estimate 3.7 RATIO (3.7-5.6); Chloride 106 mMol/L (98-107); Cholesterol 194 mg/dL (132-200); Creatinine (Component) 0.8 mg/dL (0.6-1.3); Globulin 2.2 gm/dL (2.3-3.5); Glucose 104 mg/dL (74-106); HDL Cholesterol 53 mg/dL (40-60); LDL Cholesterol,Calculated 109 mg/dL (0-130); Osmolality,Calculated 288 (275-295); Potassium 3.9 mMol/L (3.4-5.1); Sodium 145 mMol/L (136-145); Thyroid Stimulating Hormone 3.04 uIU/mL (0.55-4.78); Total Protein 6.7 gm/dL (5.7-8.2); Triglycerides 162 mg/dL (30-150); eGFR > 60 See Note
[2025-07-08 06:58] LABS: Direct LDL* 130 mg/dL (<100)
== END | disposition home or self-care (01) ==
LOC: COPL 09:47
PROVIDERS: PCP Obstetrics & Gynecology; Referring Provider Obstetrics & Gynecology; Visit Provider Obstetrics & Gynecology
DX: R60.0 Localized edema (principal)
CPT/HCPCS: 36415; 80053; 80061; 81001; 82306; 83036; 83721; 84443; 85025

== ENCOUNTER 2025-07-26 11:49 | Emergency (ER) | payer OTHER, MEDICAID, SELFPAY ==
[2025-07-26 12:00] VITALS: BP 133/83; PULSE 94; RESP 18; TEMP 37.2; O2SAT 97; BMI 31.1
--- NOTE | 2025-07-26 12:19 | XR_ITS ---
Examination: CT brain head without contrast. 2-D sagittal coronal reconstructions Date and time of exam:July 26, 2025, 1314 hrs., Comparison May 03, 2020. Indications: Headaches one month. CTDI: vol (mGy):48.9 DLP: (mGycm):932. Technique: Multiple CT axial sections of the brain have been obtained, 5 mm slice thickness. Contrast has not been administered. 2-D sagittal, coronal reconstructions have been obtained Low dose protocols were performed. One or more of the following dose reduction techniques were used; automated exposure control, adjustment of the mA and/or KV according to patient size, use of iterative reconstruction technique. Findings: No significant ventricular enlargement. Intra-axial or extra-axial hemorrhage density is not seen. No mass effect or midline shift Basal cisterns are not remarkable. Fourth ventricle is midline. Cranial vault intact. Impression: Negative for acute hemorrhage, mass effect or midline shift Advise clinical correlation follow-up accordingly
--- NOTE | 2025-07-26 12:19 | PD.EDRME ---
Rapid Medical Screening Exam RME Arrival date/time: 07/26/25 11:49 70-year-old female presents to the Emergency Department for complaint of headache x 1 month Chief Complaint: Headache Vital signs: Vital Signs Temperature 99.0 F 07/26/25 12:00 Pulse Rate 94 07/26/25 12:00 Respiratory Rate 18 07/26/25 12:00 Blood Pressure 133/83 H 07/26/25 12:00 Pulse Oximetry (%) 97 07/26/25 12:00 Oxygen Delivery Method Room Air 07/26/25 12:00
[2025-07-26 12:42] LABS: Basophils # (Auto) 0.0 Thou/mm3 (0.0-0.2); Basophils % (Auto) 1 % (0-2.5); Eosinophils # (Auto) 0.1 Thou/mm3 (0.0-0.5); Eosinophils % (Auto) 1 % (0-10); Hematocrit 40.7 % (36.0-46.0); Hemoglobin 13.6 g/dL (12.0-16.0); Immature Granulocytes Auto 0.00 Thou/mm3 (0.00-0.00); Lymphocytes # (Auto) 1.9 Thou/mm3 (1.0-4.8); Lymphocytes % (Auto) 33 % (10-50); Mean Corpuscular HGB Conc 33.4 g/dl (31.0-37.0); Mean Corpuscular Hemoglobin 29.2 pg (25.0-35.0); Mean Corpuscular Volume 88 fL (80-100); Monocytes # (Auto) 0.4 Thou/mm3 (0.0-0.8); Monocytes % (Auto) 7 % (0-12); Neutrophils # (Auto) 3.3 Thou/mm3 (1.8-7.7); Neutrophils % (Auto) 58 % (37-80); Nucleated Red Blood Cell # 0.00 Thou/mm3 (0.00-0.00); Nucleated Red Blood Cell % 0 /100 WBC (0); Platelet Count 324 Thou/mm3 (140-440); RDW Standard Deviation 42.1 fL (36.4-46.3); Red Blood Count 4.65 Miln/mm3 (4.00-5.20); White Blood Count 5.7 Thou/mm3 (3.6-11.0)
[2025-07-26 13:37] LABS: Alanine Aminotransferase 15 U/L (10-49); Albumin, Serum 4.9 gm/dL (3.4-4.8); Albumin/Globulin Ratio 1.8 (1.2-2.2); Alkaline Phosphatase 88 U/L (46-116); Anion Gap 10 (7-16); Aspartate Amino Transferase 20 U/L (0-34); BUN/Creatinine Ratio 10 Ratio (12-20); Bilirubin,Total 1.0 mg/dL (0.3-1.2); Blood Urea Nitrogen 9 mg/dL (9-23); Calcium 9.7 mg/dL (8.3-10.6); Calcium (Corrected) 9.7 mg/dL (8.5-10.1); Carbon Dioxide 30.5 mMol/L (20.0-31.0); Chloride 99 mMol/L (98-107); Creatinine (Component) 0.9 mg/dL (0.6-1.3); Estimated Creatinine Clearance 54.6 mL/min (>60); Globulin 2.7 gm/dL (2.3-3.5); Glucose 119 mg/dL (74-106); Osmolality,Calculated 277 (275-295); Sodium 139 mMol/L (136-145); Total Protein 7.6 gm/dL (5.7-8.2); eGFR > 60 See Note
[2025-07-26 13:39] LABS: Potassium 2.7 mMol/L (3.4-5.1)
[2025-07-26] MEDS: ACETAMINOPHEN 500 MG TABLET 1000 MG PO (14:49)
[2025-07-26 15:38] VITALS: BP 114/76; PULSE 85; RESP 18; TEMP 37; O2SAT 97
--- NOTE | 2025-07-26 16:26 | PD.EDHA ---
ED Headache RME/HPI General Chief Complaint: Headache Stated Complaint: HEADACHE x 1 MONTH Time Seen by Provider: 07/26/25 13:23 Arrival date/time: 07/26/25 11:49 RME / HPI RME / HPI Narrative: 70-year-old female presents to the Emergency Department for complaint of headache x 1 month. Described as dull ache, severity mild. Patient denies any focal neurologic deficit. Denies any fever denies any head trauma. Patient is ambulatory. No vomiting no diarrhea. No medication was taken prior to ER visit. Related Data Home Medications ?Medication ?Instructions ?Recorded ?Confirmed omeprazole 40 mg capsule,delayed 40 mg PO QDAY 05/21/25 05/21/25 release Previous Rx's ?Medication ?Instructions ?Recorded diclofenac sodium 1 % topical gel 2 g topical QID #100 grams 11/01/24 (Voltaren Arthritis Pain) denosumab 60 mg/mL subcutaneous 60 mg subcut .once every 6 months 02/06/25 syringe ([employer] #1 mL aspirin 81 mg tablet,delayed 81 mg PO QDAY #90 tabs 02/18/25 release calcium 1,000 mg (as 1 tab PO .q day 90 days #90 tabs 03/14/25 carbonate)-vitamin D3 20 mcg (800 unit) tablet amlodipine 5 mg tablet 5 mg PO QDAY #90 tabs 04/01/25 rosuvastatin 40 mg tablet 40 mg PO QDAY #90 tabs 04/01/25 metoclopramide HCl 5 mg tablet 5 mg PO QDAY #14 tabs 05/21/25 (Reglan) potassium chloride 20 mEq 20 meq PO QDAY #7 tabs 07/26/25 tablet,extended release Allergies Allergy/AdvReac Type Severity Reaction Status Date / Time adhesive tape Allergy Mild Rash Verified 07/26/25 11:53 Review of Systems Review of Systems Narrative Review of Systems: Review of system reviewed and within normal limits except mentioned in HPI ED Exam Narrative Physical exam: VITAL SIGNS: Reviewed. GENERAL APPEARANCE: Alert and interactive, follows commands, no acute distress, HEAD AND FACE: Non-traumatic. ENT: PERRL, pink conjunctivitis, eyelid no trauma, Mucous membrane moist. NECK: Supple, nontender, no nuchal rigidity. CHEST: No tenderness, no crepitus, no paradoxical movement, no retractions. LUNGS: Clear, well ventilated, symmetric, no rales, no wheezing, no ronchi, no stridor, good breath sounds bilaterally. HEART: Regular rate, regular rhythm, no murmur, no gallops. ABDOMEN: Soft, positive bowel sounds, nondistended, no guarding, nontender, no rebound, no masses, RECTAL: Deferred. GENITAL: Deferred. NEUROLOGICAL: Gross motor function intact sensory function intact, Appropriate for age. MUSCULOSKELETAL: low back nontender, full range of motion. EXTREMITIES: Nontender, full range of motion. SKIN: Color pink, dry, no rash, no lacerations, no abrasions, no contusions. LYMPHATICS: Deferred. Course Quality Measures none Orders Category Date Time Status CT head/brain wo con Stat Exams 07/26/25 12:19 Completed CBC Stat Lab 07/26/25 12:29 Completed CMP [Comprehensive Metabolic Panel] Stat Lab 07/26/25 12:29 Completed Acetaminophen Tab [Tylenol ES Tab] Med 07/26/25 14:31 Discontinued 1,000 mg PO X1 ONE Potassium Chloride [K-Dur] Med 07/26/25 14:31 Discontinued 40 meq PO X1 ONE Potassium Chloride [K-Dur] Med 07/26/25 16:06 Discontinued 40 meq PO X1 ONE Vital Signs Vital signs: Vital Signs Temperature 99.0 F 07/26/25 12:00 Pulse Rate 94 07/26/25 12:00 Respiratory Rate 18 07/26/25 12:00 Blood Pressure 133/83 H 07/26/25 12:00 Pulse Oximetry (%) 97 07/26/25 12:00 Oxygen Delivery Method Room Air 07/26/25 12:00 Headache MDM Narrative MDM Narrative:: 70-year-old female presents to the Emergency Department for complaint of headache x 1 month. Described as dull ache, severity mild. Patient denies any focal neurologic deficit. Denies any fever denies any head trauma. Patient is ambulatory. No vomiting no diarrhea. No medication was taken prior to ER visit. CT scan of the head came back unremarkable. Patient was given potassium total 80 mEq p.o. And Tylenol. Patient's potassium today was noted to be 2.7. Rest of the labs unremarkable. Patient will be sent home on potassium 20 mEq x 7 days. Advised her to follow-up closely tomorrow or next day for repeat potassium check in the clinic. Patient agrees with the plan. Patient data External records reviewed:: None Clinical information provided by:: patient Social determinants that could affect healthcare access:: none Patient has the following chronic illnesses:: Hypothyroidism hypertension How is presenting disease/condition affected by chronic disease/condition?: exacerbated by Evaluation data The following diagnostics were reviewed and interpreted by me:: lab results and radiology exam(s) Lab and/or radiology exams considered but not ordered:: None Interpretation Summary: See results MDM Medications / Prescriptions Medications or Prescriptions considered but not ordered:: None Medication administrations:: Medication Administration History Discontinued Medications Acetaminophen (Acetaminophen 500 Mg Tablet) 1,000 mg PO X1 ONE Stop: 07/26/25 14:32 Last Admin: 07/26/25 14:49 Dose: 1,000 mg Documented By: Potassium Chloride (Potassium Chloride 20 Meq Tabcr) 40 meq PO X1 ONE Stop: 07/26/25 14:32 Last Admin: 07/26/25 14:48 Dose: 40 meq Documented By: Potassium Chloride (Potassium Chloride 20 Meq Tabcr) 40 meq PO X1 ONE Stop: 07/26/25 16:07 Last Admin: 07/26/25 16:18 Dose: 40 meq Documented By: OA Potassium, Tylenol Consultations Consultation(s) initiated? (list below): No Diagnosis Differential diagnosis headache: migraine, tension headache, headache, postconcussion syndrome and other (Intracranial tumor) Most likely diagnosis given after review of the tests above:: Headache, hypokalemia Admission Indicated Admission indicated?: not indicated Admission Request Was there a request for admission?: No Disposition Plan Disposition Plan: Discharge Discharge Attestation Discharge Attestation: The patient and all family members were given an opportunity to ask questions and understood the discharge instructions. Discharge instructions specifically effects, indications for sooner follow up or return to the emergency department, and the expected course of current diagnosis. Patient condition: Stable Discharge Plan Plan Patient Disposition: HOME (Self Care) Discharge Disposition comment: Stable Prescriptions/Referrals Prescriptions/Med Rec: New potassium chloride 20 mEq tablet extended release 20 meq PO QDAY Qty: 7 0RF No Action Prolia 60 mg/mL syringe 60 mg subcut .once every 6 months Qty: 1 0RF aspirin 81 mg tablet,delayed release (DR/EC) 81 mg PO QDAY Qty: 90 1RF calcium carbonate-vitamin D3 1,000 mg-20 mcg (800 unit) tablet 1 tab PO .q day 90 Days Qty: 90 1RF diclofenac sodium [Voltaren Arthritis Pain] 1 % gel 2 g topical QID Qty: 100 0RF Rx Instructions: apply to area of concern amlodipine 5 mg tablet 5 mg PO QDAY Qty: 90 0RF rosuvastatin 40 mg tablet 40 mg PO QDAY Qty: 90 0RF metoclopramide HCl [Reglan] 5 mg tablet 5 mg PO QDAY Qty: 14 0RF omeprazole 40 mg capsule,delayed release(DR/EC) 40 mg PO QDAY Referrals: Ryan Manriquez [Primary Care Provider] - In 1 week Problem List Clinical Impression: Headache, Hypokalemia Patient/Caregiver Discharge Instructions Discharge Activity: activity as tolerated Education Materials: ED Hypokalemia Additional Instructions: Thank you for the opportunity for serving you today. You are stable for discharged . You are advised to: Follow-up with your PCP in 1 to 2 days Return to ED for worsening of symptoms Increase oral fluids Take medication as prescribed Print Language: Vincentian Stand Alone Forms: Ivanna Award Info., Patient Portal Info Letter PA/BRENDAN Supervising Physician ROGER/BRENDAN Supervising Physician: MD Magda
[2025-07-26 16:37] VITALS: BP 128/82; PULSE 78
== END 2025-07-26 16:38 | disposition home or self-care (01) ==
PROVIDERS: Nurse Practitioner Primary Care; Emergency Provider Family Medicine; PCP Physician Assistant
DX: E87.6 Hypokalemia (principal); R51.9 Headache, unspecified; E03.9 Hypothyroidism, unspecified; I10 Essential (primary) hypertension; Z91.048 Other nonmedicinal substance allergy status
CPT/HCPCS: 36415; 70450; 80053; 85025; 99283; A9270